=== PATIENT | female | born 1990 | race Caucasian/White ===

== ENCOUNTER 2025-05-10 20:31 | Emergency (ER) | payer OTHER, SELFPAY ==
[2025-05-10 20:51] VITALS: BP 158/95; PULSE 90; RESP 18; TEMP 36; O2SAT 97; BMI 26.6
== END 2025-05-10 22:58 | disposition left against medical advice (07) ==
PROVIDERS: Emergency Provider Emergency Medicine
DX: Z53.21 Procedure and treatment not carried out due to patient leaving prior to being seen by health care provider (principal)
CPT/HCPCS: 99281